=== PATIENT | female | born 1995 | race Caucasian/White ===

== ENCOUNTER 2017-10-09 10:14 | Emergency (ER) | payer OTHER ==
[~2017-10-09] VITALS: Ht 172.7 cm; Wt 63.5 kg
[~2017-10-09 10:14] MED LIST: ALBU90OI INH; CYCL10 PO; EXPECTA PRENAT1 EACH; IBUP600 PO; IBUP800 PO; LORA1 PO; Naprosyn500 MG PO; Percocet 5-3251 EACH PO; RXLORA1 PO; TRAM50 PO
[2017-10-09] MEDS ORDERED: Verotin-Gr Cap1 EACH PO (10:37)
== END 2017-10-09 11:46 | disposition home or self-care (01) ==
LOC: ER 10:14
DX: M25.531 Pain in right wrist (principal); M54.2 Cervicalgia; Z79.899 Other long term (current) drug therapy; V43.52XA Car driver injured in collision with other type car in traffic accident, initial encounter
CPT/HCPCS: 73110; 99283

== ENCOUNTER 2019-02-07 15:18 | Emergency (ER) | payer OTHER ==
[~2019-02-07] VITALS: Ht 170.2 cm; Wt 59.0 kg
[~2019-02-07 15:18] MED LIST changes: +Verotin-Gr Cap1 EACH PO
== END 2019-02-07 17:30 | disposition home or self-care (01) ==
LOC: ER 15:18
DX: G43.109 Migraine with aura, not intractable, without status migrainosus (principal)
CPT/HCPCS: 70450; 99283-25

== ENCOUNTER → 2019-09-22 | Outpatient (CLI) | payer OTHER ==
[2019-09-26 15:08] LABS: HPV 16 Negative (Negative); HPV 18 Negative (Negative); HPV OTHER HR TYPES Negative (Negative)
== END | disposition home or self-care (01) ==
LOC: LAB 19:54 → LAB SHORT 19:54
PROVIDERS: Family Medicine
DX: Z01.419 Encounter for gynecological examination (general) (routine) without abnormal findings (principal)
CPT/HCPCS: 87624; G0123

== ENCOUNTER 2021-01-12 19:00 | Inpatient (IN) | payer OTHER ==
[~2021-01-12] VITALS: Ht 177.8 cm; Wt 68.0 kg
--- NOTE | 2021-01-12 19:14 | NUR ---
HX: BABY ONLY HAS 1 KIDNEY
[2021-01-12 19:40] LABS: Source, Urine Clean Catch
[2021-01-12 19:44] LABS: Appearance, Urine Clear (Clear); Bilirubin, Urine Neg (Neg); Blood, Urine Neg (Neg); Color, Urine Yellow (P-Yellow); Glucose Qualitative, Urine Neg (Neg); Ketones, Urine Neg (Neg); Leukocyte Esterase, Urine 1+ (Neg); Nitrite, Urine Neg (Neg); Protein, Urine Neg (Neg); Urobilinogen, Urine 1+ (Normal)
[2021-01-12 19:53] LABS: Bacteria Few /hpf; Red Blood Cells, Urine 0-2 /hpf (0-2); Squamous Epithelial Cells Few /hpf (Few)
[2021-01-12] MEDS ORDERED: PRENATAL TABLE1 EAC2 PO (20:24)
[2021-01-12 21:01] LABS: BASOPHILS ABSOLUTE AUTO 0.05 K/mm3 (0.00-0.23); BASOPHILS PERCENT AUTO 1 % (0-2); EOSINOPHILS ABSOLUTE AUTO 0.28 K/mm3 (0.00-0.68); EOSINOPHILS PERCENT AUTO 3 % (0-6); Hematocrit 35.4 % (33.0-51.0); Hemoglobin 12.1 g/dL (11.5-16.0); IMMATURE GRAN ABSOLUTE AUTO 0.07 K/mm3 (0.00-0.10); IMMATURE GRAN PERCENT AUTO 1 % (0-1); LYMPHOCYTES ABSOLUTE AUTO 2.24 K/mm3 (0.84-5.20); LYMPHOCYTES PERCENT AUTO 24 % (21-46); MONOCYTES ABSOLUTE AUTO 0.71 K/mm3 (0.16-1.47); MONOCYTES PERCENT AUTO 8 % (4-13); Mean Corpuscular HGB 29.7 pg (26.0-34.0); Mean Corpuscular HGB Conc 34.2 g/dL (31.5-36.5); Mean Corpuscular Volume 87 fL (80-100); Mean Platelet Volume 12.3 fL (9.1-12.4); NEUTROPHILS ABSOLUTE AUTO 6.04 K/mm3 (1.96-9.15); NEUTROPHILS PERCENT AUTO 64 % (41-73); Platelet Count 207 K/mm3 (150-400); RDW Coefficient Variation 12.5 % (11.7-14.2); RDW Standard Deviation 39.4 fL (35.1-46.3); Red Blood Cell Count 4.07 M/mm3 (3.80-5.20); White Blood Cell Count 9.39 K/mm3 (4.00-11.30)
[2021-01-12 21:23] LABS: SARS-Cov-2 (COVID-19) PCR, MMC NEGATIVE (NEGATIVE)
[2021-01-13] MEDS ORDERED: ACET500 PO (17:10)
[2021-01-13] MEDS ORDERED: IBUP800 PO (17:10)
[2021-01-14 08:32] LABS: Hematocrit 35.9 % (33.0-51.0); Hemoglobin 12.2 g/dL (11.5-16.0); Mean Corpuscular HGB 30.1 pg (26.0-34.0); Mean Corpuscular Volume 89 fL (80-100); Platelet Count 166 K/mm3 (150-400); RDW Coefficient Variation 12.6 % (11.7-14.2); RDW Standard Deviation 40.9 fL (35.1-46.3); Red Blood Cell Count 4.05 M/mm3 (3.80-5.20); White Blood Cell Count 11.59 K/mm3 (4.00-11.30)
== END 2021-01-14 15:00 | disposition home or self-care (01) | DRG 807 ==
LOC: BC 19:00 → OBS 19:00 → BC 19:01 → OBS 20:10 → BC 20:14
PROVIDERS: Nurse Practitioner Obstetrics & Gynecology; ADMIT Registered Nurse Community Health
PROC: 3E0E7GC Introduction of Other Therapeutic Substance into Products of Conception, Via Natural or Artificial Opening (ICD-10-PCS; principal; 2021-01-13)
PROC: 10E0XZZ Delivery of Products of Conception, External Approach (ICD-10-PCS; 2021-01-13)
PROC: 10H07YZ Insertion of Other Device into Products of Conception, Via Natural or Artificial Opening (ICD-10-PCS; 2021-01-13)
DX: O77.0 Labor and delivery complicated by meconium in amniotic fluid (principal); Z37.0 Single live birth; Z3A.38 38 weeks gestation of pregnancy; O76 Abnormality in fetal heart rate and rhythm complicating labor and delivery; Z20.822 Contact with and (suspected) exposure to COVID-19; O70.0 First degree perineal laceration during delivery
CPT/HCPCS: 36415; 59025; 81001; 85025; 85027; 86850; 86900; 86901; 87086; A9270; J2210; J2590; J7030; J7120; U0004

== ENCOUNTER 2024-08-24 05:04 | Observation (INO) | payer OTHER ==
[~2024-08-24] VITALS: Ht 177.8 cm; Wt 59.9 kg
[~2024-08-24 05:04] MED LIST changes: +ACET500 PO; +PRENATAL TABLE1 EAC2 PO
[2024-08-24 05:59] LABS: BASOPHILS ABSOLUTE AUTO 0.04 K/mm3 (0.00-0.23); BASOPHILS PERCENT AUTO 0 % (0-2); EOSINOPHILS ABSOLUTE AUTO 0.27 K/mm3 (0.00-0.68); EOSINOPHILS PERCENT AUTO 2 % (0-6); Hematocrit 37.1 % (33.0-51.0); Hemoglobin 12.6 g/dL (11.5-16.0); IMMATURE GRAN ABSOLUTE AUTO 0.05 K/mm3 (0.00-0.10); IMMATURE GRAN PERCENT AUTO 0 % (0-1); LYMPHOCYTES ABSOLUTE AUTO 1.43 K/mm3 (0.84-5.20); LYMPHOCYTES PERCENT AUTO 10 % (21-46); MONOCYTES ABSOLUTE AUTO 0.71 K/mm3 (0.16-1.47); MONOCYTES PERCENT AUTO 5 % (4-13); Mean Corpuscular HGB 29.3 pg (26.0-34.0); Mean Corpuscular Volume 86 fL (80-100); Mean Platelet Volume 11.1 fL (9.1-12.4); NEUTROPHILS ABSOLUTE AUTO 11.52 K/mm3 (1.96-9.15); NEUTROPHILS PERCENT AUTO 82 % (41-73); Platelet Count 176 K/mm3 (150-400); RDW Coefficient Variation 12.4 % (11.7-14.2); RDW Standard Deviation 38.9 fL (35.1-46.3); White Blood Cell Count 14.02 K/mm3 (4.00-11.30)
[2024-08-24 06:05] LABS: Albumin, Blood 3.9 g/dL (3.4-5.0); Bilirubin, Total 2.6 mg/dL (0.1-1.0); Bun/Creatinine Ratio 15.6 (12.0-20.0); Calcium, Blood 8.8 mg/dL (8.5-10.1); Creatinine, Blood 0.64 mg/dL (0.40-1.00); Globulin, Blood 3.8 g/dL (2.2-4.0); Potassium, Blood 3.7 mmol/L (3.5-5.5); Total Protein, Blood 7.7 g/dL (6.4-8.2)
[2024-08-24] MEDS ORDERED: CefOXitin Sodium 2,000 MG in NS 50 ML IV ONE (07:50)
[2024-08-24] MEDS ORDERED: NS 1,000 ML IV SCH (07:50)
[2024-08-24] MEDS ORDERED: Ketorolac Tromethamine 30mg Vial IV ONE (08:45)
[2024-08-24 09:04] LABS: Source, Urine Clean Catch
[2024-08-24 09:17] LABS: Appearance, Urine Clear (Clear); Bilirubin, Urine Neg (Neg); Blood, Urine Neg (Neg); Color, Urine Yellow (P-Yellow); Glucose Qualitative, Urine Neg (Neg); Ketones, Urine 2+ (Neg); Leukocyte Esterase, Urine Neg (Neg); Nitrite, Urine Neg (Neg); Protein, Urine Neg (Neg); Urobilinogen, Urine NORM (Normal)
[2024-08-24] MEDS ORDERED: Bupivacaine 0.5% HCl 5 MG/ML 30MLVIAL ONE (10:55)
[2024-08-24 12:36] VITALS: BP 123/80
--- NOTE | 2024-08-24 12:55 | NUR ---
PT ARRIVED TO UNIT FROM ED. ORIENTED TO ROOM. PT REMAINING IN CLOTHES UNTIL SPEAKS TO DR WONG. WISHES TO TREAT WITH ABX AND DC HOME, PREFERS NOT TO HAVE SURGERY.
[2024-08-24 14:25] VITALS: BP 105/74
[2024-08-24] MEDS ORDERED: Ketorolac Tromethamine 15mg Vial IV PRN (15:30)
[2024-08-24] MEDS ORDERED: AMOCLA875 PO (15:41)
[2024-08-24 15:46] VITALS: BP 106/70
--- NOTE | 2024-08-24 15:56 | NUR ---
discharged reviewed dc instructions w/pt; verbalized understanding. iv dc'd. prescription called to [facility] per pt request. pt left unit by ambulation with possessions and dc paperwork in hand.
[2024-08-24] MEDS ORDERED: CefOXitin Sodium 2,000 MG in NS 50 ML IV SCH (16:00)
== END 2024-08-24 15:57 | disposition home or self-care (01) ==
LOC: ER 05:04 → SURS 05:05
PROVIDERS: Emergency Medicine; ADMIT Surgery
DX: K35.80 Unspecified acute appendicitis (principal)
CPT/HCPCS: 74177; 76857; 80053; 81003; 84703; 85025; 96365-59; 96375; 99285-25; G0378; J0694; J1885; J7030; Q9967

== ENCOUNTER 2025-04-16 22:07 | Observation (INO) | payer OTHER ==
[~2025-04-16] VITALS: Ht 177.8 cm; Wt 59.0 kg
[~2025-04-16 22:07] MED LIST changes: +AMOCLA875 PO
[2025-04-16] MEDS ORDERED: Ketorolac Tromethamine 15mg Vial IV ONE (22:50)
[2025-04-16] MEDS ORDERED: Ondansetron HCl 2 MG / ML 2ML Vial IV ONE (22:50)
[2025-04-16 23:02] LABS: BASOPHILS ABSOLUTE AUTO 0.07 K/mm3 (0.00-0.23); BASOPHILS PERCENT AUTO 1 % (0-2); EOSINOPHILS ABSOLUTE AUTO 0.32 K/mm3 (0.00-0.68); EOSINOPHILS PERCENT AUTO 3 % (0-6); Hematocrit 40.6 % (33.0-51.0); Hemoglobin 14.0 g/dL (11.5-16.0); IMMATURE GRAN ABSOLUTE AUTO 0.05 K/mm3 (0.00-0.10); IMMATURE GRAN PERCENT AUTO 0 % (0-1); LYMPHOCYTES ABSOLUTE AUTO 2.90 K/mm3 (0.84-5.20); LYMPHOCYTES PERCENT AUTO 22 % (21-46); MONOCYTES ABSOLUTE AUTO 0.75 K/mm3 (0.16-1.47); MONOCYTES PERCENT AUTO 6 % (4-13); Mean Corpuscular HGB Conc 34.5 g/dL (31.5-36.5); Mean Corpuscular Volume 87 fL (80-100); NEUTROPHILS ABSOLUTE AUTO 8.93 K/mm3 (1.96-9.15); NEUTROPHILS PERCENT AUTO 69 % (41-73); NRBC ABSOLUTE 0.00 K/mm3 (0.00-0.02); NRBC Auto 0.0 /100 WBC (0.0-0.2); Platelet Count 261 K/mm3 (150-400); RDW Coefficient Variation 12.1 % (11.7-14.2); RDW Standard Deviation 38.1 fL (35.1-46.3)
[2025-04-16 23:25] LABS: Alanine Aminotransfer (ALT/SGP 19.0 U/L (12-78); Albumin, Blood 4.3 g/dL (3.4-5.0); Albumin/Globulin Ratio 1.1 (0.8-1.8); Anion Gap 6.0 mmol/L (3-11); Aspartate Aminotrans (AST/SGOT 12.0 U/L (12-37); Bilirubin, Total 1.7 mg/dL (0.1-1.0); Blood Urea Nitrogen 12.0 mg/dL (8-24); CO2, Blood 27.0 mmol/L (21-32); Calcium, Blood 9.4 mg/dL (8.5-10.1); Chloride, Blood 107.0 mmol/L (98-108); Creatinine, Blood 0.65 mg/dL (0.40-1.00); Globulin, Blood 3.9 g/dL (2.2-4.0); Glucose, Blood 102.0 mg/dL (70-99); Potassium, Blood 3.9 mmol/L (3.5-5.5); Sodium, Blood 136.0 mmol/L (136-145); Total Protein, Blood 8.2 g/dL (6.4-8.2)
[2025-04-17] MEDS ORDERED: Piperacillin/Tazobactam Sod 4.5 GM in NS 100 ML IV ONE (01:20)
[2025-04-17] MEDS ORDERED: D5W-1/2NS KCl 20mEq 1,000 ML IV SCH (01:20)
[2025-04-17] MEDS ORDERED: HYDROmorphone HCl/Pf 1MG SYR IV PRN (01:20)
[2025-04-17] MEDS ORDERED: Ondansetron HCl 2 MG / ML 2ML Vial IV PRN (01:20)
[2025-04-17] MEDS ORDERED: HYDROcodone 5-APAP 325 TAB PO PRN (01:20)
[2025-04-17 02:31] VITALS: BP 105/59
--- NOTE | 2025-04-17 04:10 | NUR ---
SHIFT SUMMARY: PT WAS ADMITTED TO THE FLOOR AT 0230. C/O MILD ABDOMINAL PAIN, REFUSED MEDICATION. IV FLUIDS RUNNING PER ORDERS. NPO. CALL LIGHT IS WITHIN REACH. BED IS LOW AND LOCKED.
[2025-04-17 07:14] VITALS: BP 102/70
[2025-04-17] MEDS ORDERED: Bupivacaine 0.5% HCl 5 MG/ML 30MLVIAL ONE (07:44)
[2025-04-17] MEDS ORDERED: Piperacillin/Tazobactam Sod 3.375 GM in NS 100 ML IV SCH (08:00)
[2025-04-17] MEDS ORDERED: FLU VACC TS2025-26(6MOS UP)/PF 45 MCG/0.5 ML SYRINGE IM SCH (09:05)
[2025-04-17] MEDS ORDERED: AMOCLA875 PO (09:51)
--- NOTE | 2025-04-17 10:48 | NUR ---
DISCHARGE SUMMARY: A&Ox4. PLEASANT AND COOPERATIVE WITH CARE. CALLS APPROPRIATELY AND IS ABLE TO ADVOCATE NEEDS EFFECTIVELY. AMBULATES INDEPENDENTLY. CONTINENT OF BOWEL AND BLADDER; LBM 04/17/25. MEDS WHOLE c FLUIDS. PAIN 11/26 BUT DECLINES OFFER OF PAIN MEDS AT HTIS TIME. SURGICAL CONSULT DONE, BUT PT OPTS FOR NO SURGICAL INTERVENTION, ONLY ABT AT THIS TIME DUE TO WORK OBLIGATIONS. PATIENT PROVIDED WITH COPY OF DISCHARGE PLAN AND MEDICATION LIST. MED REC FAXED TO [facility]. INSTRUCTED TO FOLLOW-UP WITH DR WONG. ALL QUESTIONS ANSWERED TO DISCHARGING NURSE'S ABILITY AND PATIENT VOICED UNDERSTANDING OF DISCHARGE PLAN. IV REMOVED AND PRESSURE DRESSING PLACED. LEFT FLOOR WITH ALL BELONGINGS AND DISCHARGE PACKET, ESCORTED BY , PROVIDING TRANSPORTATION VIA POV.
== END 2025-04-17 11:03 | disposition home or self-care (01) ==
LOC: ER 22:07 → SURS 22:08 → MEDS 22:08
PROVIDERS: Emergency Medicine; ADMIT Surgery
DX: K35.80 Unspecified acute appendicitis (principal); M41.9 Scoliosis, unspecified; G43.909 Migraine, unspecified, not intractable, without status migrainosus
CPT/HCPCS: 74177; 80053; 83605; 85025; 96365; 96374; 96375; 99285-25; G0378; J1885; J2405; J2543; Q9967